=== PATIENT | female | born 1960 | race Caucasian/White ===

== ENCOUNTER 2016-12-08 14:01 | Emergency (ER) | payer BC ==
--- NOTE | ~2016-12-08 | CR72 ---
[facility]. [facility] A Service of [facility] & [facility] RADIOLOGY TEXT RESULTS PATIENT: ALEJO JORDAN LOCATION: SED : 58 UNIT #: [id number] AGE: [address]: Parul Acosta SEX: F ORDER DR: [id number] [address] [address] [id number] MR#: [id number] Acc #: [id number] NAME: ALEJO JORDAN : 1960 SEX: F STUDY DATE/TIME: 12/08/2016 14:23 UNIT: SED ROOM: STUDY DESCRIPTION: CR Chest Single View Portable Attending Physician: Parul Acosta Pa-C Ordering Physician: Maynor [id number] Katy Burns Primary Care Physician: Primary Care Physician No MEDICAL IMAGING REPORT This report is preliminary unless electronic signature is present. EXAM Chest portable, 12/08/2016 HISTORY Productive cough for 1 month with chest congestion, short of breath. FINDINGS The heart is normal in size. 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 Lungs are clear. There are no pleural effusions. IMPRESSION No active pulmonary disease. Dictated by... Mihai Rubio M.D. THIS IS AN ELECTRONICALLY VERIFIED REPORT Mihai Rubio M.D. at 12/09/2016 8:01 AM FERNANDEZ/abhishek TD: 12/08/2016 20:44 JOB #: [id number] MEDICAL IMAGING REPORT Page 1 of 1
[~2016-12-08 14:01] MED LIST: ACETAMINOPHEN PO; MOTRIN400 M1; [UNRECOGNIZED DRUG - REMARK]
[2016-12-08] MEDS ORDERED: NO MEDICATIONS (14:03)
== END 2016-12-08 15:12 | disposition home or self-care (01) ==
LOC: SED 14:01
DX: J40 Bronchitis, not specified as acute or chronic (principal); Z90.49 Acquired absence of other specified parts of digestive tract; Z90.710 Acquired absence of both cervix and uterus
CPT/HCPCS: 71010; 99283